=== PATIENT | male | born 1985 | race Caucasian/White ===

== ENCOUNTER 2017-05-26 16:11 | Emergency (ER) | payer BC ==
[2017-05-26 16:32] VITALS: BP 119/78; PULSE 80; RESP 18; TEMP 98.7
--- NOTE | 2017-05-26 17:09 | ED ---
General Adult HPI - General Chief complaint: Wound/Laceration Stated complaint: Dog Bite Time Seen by Provider: 05/26/17 16:39 Source: patient, RN notes reviewed Mode of arrival: ambulatory - History of Present Illness Initial comments: 31-year-old male presents to the emergency 5 chief complaint of concern for rabies vaccination. He was bit by a dog the dog park he went to his family care doctor who cleaned into the care of his wound and he is just here for the rabies vaccination. He has no complaints at this time. He is up-to-date on his tetanus. Patient does not know the design transferrer of the dog he does not if the dog is up-to-date on vaccinations. He was bit to the hand.Patient denies any recent fever, chills, shortness of breath, chest pain, back pain, abdominal pain , nausea vomiting, numbness or tingling, dysuria or hematuria, constipation or diarrhea, headaches or visual changes, or any other current symptoms. - Related Data Home Medications Medication Instructions Recorded Confirmed No Known Home Medications [No 01/08/16 05/26/17 Known Home Medications] Allergies Allergy/AdvReac Type Severity Reaction Status Date / Time No Known Allergies Allergy Verified 05/26/17 16:45 Review of Systems ROS Statement: Those systems with pertinent positive or pertinent negative responses have been documented in the HPI. ROS Other: All systems not noted in ROS Statement are negative. Past Medical History Past Medical History: No Reported History History of Any Multi-Drug Resistant Organisms: None Reported Past Surgical History: No Surgical Hx Reported Past Psychological History: No Psychological Hx Reported Smoking Status: Former smoker Past Alcohol Use History: Occasional Past Drug Use History: None Reported General Exam - General Exam Comments Initial Comments: General: The patient is awake and alert, in no distress, and does not appear acutely ill. Neck: The neck is supple, there is no tenderness. Cardiovascular: There is a regular rate and rhythm. No murmur, rub or gallop is appreciated. Respiratory: Lungs are clear to auscultation, respirations are non-labored, breath sounds are equal. No wheezes, stridor, rales, or rhonchi. Musculoskeletal: Sensation intact and he does have bandages to the fingers. No obvious bleeding at this time. Patient requests not to have the bandage removed with his doctor did apply them. Neurological: CN II-XII intact, There are no obvious motor or sensory deficits. Coordination appears grossly intact. Speech is normal. Skin: Skin is warm and dry and no rashes or lesions are noted. Psychiatric: Normal mood and affect. Course Vital Signs 05/26/17 16:28 Temperature 98.7 F Pulse Rate 80 Respiratory 18 Rate Blood Pressure 119/78 O2 Sat by Pulse 97 Oximetry Medical Decision Making - Medical Decision Making 31-year-old male presents for rabies vaccination. At this time we discussed rabies vaccinations we discussed that he would need to vomit as well as the vaccination series to be fully face. Tenderness area today. He states he does not want have sent this time. We discussed that he completed a two-week for this decision from the day of the right. We discussed the importance of rabies. Patient stated he understood that he would like to go home and think about this. At this time he will be discharged. Disposition Clinical Impression: Dog bite of hand Disposition: HOME SELF-CARE Condition: Stable Instructions: Animal Bite (ED) Additional Instructions: Please use medication as discussed. Please follow up with family doctor if symptoms have not improved over the next two days. Please return to the emergency room if your symptoms increase or worsen or for any other concerns. Referrals: Jake Alanis MD [Primary Care Provider] - 1-2 days Time of Disposition: 17:08
== END 2017-05-26 17:35 | disposition home or self-care (01) ==
LOC: EC 16:11
DX: S61.255A Open bite of left ring finger without damage to nail, initial encounter (principal); Z87.891 Personal history of nicotine dependence; W54.0XXA Bitten by dog, initial encounter
CPT/HCPCS: 99283